=== PATIENT | male | born 2005 | race African-American/Black ===

== ENCOUNTER 2024-06-08 11:52 | Emergency (ER) | payer MEDICAID, SELFPAY ==
--- NOTE | ~2024-06-08 | XR_ITS ---
EXAMINATION: XR ankle RT min 3V (accession [id number]), XR foot RT min 3V (accession [id number]) 06/08/2024 12:26:00 AM CLINICAL HISTORY: pain, injury COMPARISON: None FINDINGS: No evidence of acute fracture or malalignment. Ankle mortise is congruent. Talar dome is intact. No tibiotalar joint effusion. Mild lateral ankle soft tissue swelling. XR/XR ankle RT min 3V IMPRESSION: Mild lateral ankle soft tissue swelling without evidence of acute fracture or malalignment of the right foot or ankle. Electronically signed by: Misael ePguero MD 06/08/2024 02:34 PM EDT
--- NOTE | ~2024-06-08 | XR_ITS ---
EXAMINATION: XR ankle RT min 3V (accession [id number]), XR foot RT min 3V (accession [id number]) 06/08/2024 12:26:00 AM CLINICAL HISTORY: pain, injury COMPARISON: None FINDINGS: No evidence of acute fracture or malalignment. Ankle mortise is congruent. Talar dome is intact. No tibiotalar joint effusion. Mild lateral ankle soft tissue swelling. XR/XR foot RT min 3V IMPRESSION: Mild lateral ankle soft tissue swelling without evidence of acute fracture or malalignment of the right foot or ankle. Electronically signed by: Misael Peguero MD 06/08/2024 02:34 PM EDT
[2024-06-08 11:56] VITALS: BP 132/68; PULSE 93; RESP 17; TEMP 36.6; O2SAT 98; BMI 31.8
--- NOTE | 2024-06-08 11:59 | ED.GENADULT ---
HPI - General Adult General Chief complaint: Extremity Injury, Lower Stated complaint: R ankle inj Time Seen by Provider: 06/08/24 12:45 Source: patient, RN notes reviewed and old records reviewed Mode of arrival: ambulatory History of Present Illness ED Provider: Desi Wood PA-C HPI narrative: 19-year-old male with no significant past medical history presenting to ED complaining of right ankle pain and swelling s/p twisting while doing work out yesterday. Denies head trauma, LOC, injury to the area, numbness/tingling. Has been ambulatory with pain Related Data Allergies Allergy/AdvReac Type Severity Reaction Status Date / Time No Known Allergies Allergy Verified 06/08/24 11:58 Review of Systems Review of Systems: Yes all other systems are reviewed and are negative Constitutional: Constitutional: Reports as per [facility] Past Medical History Attestation statement: The following information was validated with the patient. Source: old records reviewed Social History Social History Advance Directives: No Advance Directives Information Provided: No Do you have a plan to hurt others: No Plan Physical Exam ED Vital Signs: Vital Signs - 24 hr 06/08/24 11:56 Temperature 98 F Pulse Rate 93 Respiratory Rate 17 Blood Pressure 132/68 Pulse Oximetry 98 Oxygen Delivery Method Room Air BMI result Body Mass Index 31.8 Const General: cooperative, healthy appearing and no acute distress Orientation/consciousness: patient oriented x3 Limitations: no limitations HENMT Head: Yes normal to inspection and Yes atraumatic Ears: hearing grossly normal bilaterally General nose exam: Normal external nose present Face and sinus: Yes normal facial exam Eyes General: appearance normal, both eyes and all related structures EOM: EOMs intact bilaterally Neck Neck: Yes normal visual inspection and Yes no meningeal signs Resp Effort & Inspection: normal respiratory effort and no respiratory distress Cardio Rate: regular rate Skin Rashes: no rashes Wounds: no wounds Neuro General: patient oriented x3, tone normal and no meningeal signs Cranial nerves: Yes CN's II-XII intact bilaterally Gait exam (Neuro): Normal gait present Extrem Other: Right ankle with appreciable swelling to lateral malleolus. Diffusely tender. Limited ROM secondary to pain. Neurovascularly intact. No ecchymosis. No pedal edema Course Course Course Narrative: RME performed by Nathalie Young PA-C. Patient is a 19 year old assigned male at presenting to the emergency department with right ankle pain. Patient states he was exercising when he twisted his right ankle. Detailed physical exam and review of systems are deferred to the door and arrival attendant. Imaging ordered. Patient placed back in the waiting room pending room availability and results. 1451--XR ankle RT min 3V/XR foot RT min 3V IMPRESSION: Mild lateral ankle soft tissue swelling without evidence of acute fracture or malalignment of the right foot or ankle. > Air cast applied. Patient already has crutches. Results discussed with patient including worrisome signs and symptoms and strict return precautions, and when to return to the emergency department. They verbalized understanding and feel safe for discharge at this time. Procedures Orthopedic Splinting/Casting Injury #1: Side: right Lower Extremity Injury Location: ankle Lower Extremity Immobilizer: AirCast Other Orthopedic Equipment: crutches Medical Decision Making Medical Decision Making MDM Narrative: 19-year-old male with no significant past medical history presenting to ED complaining of right ankle pain and swelling s/p twisting while doing work out yesterday. On exam vital signs stable, NAD, nontoxic appearing, physical exam as noted above. Concern for fracture vs sprain. Unlikely DVT. No evidence of septic joint/arthritis Plan: X-ray Please refer to course for remaining clinical decision making, interpretation of labs/imaging results, and discussions with consultants and/or family members. Differential Diagnosis Differential Diagnoses: The differential diagnosis associated with the presentation includes As above Independent Interpretation I performed an independent interpretation of an: Plain X-Ray Radiology Impression Discussion of test interpretation with radiology: I have reviewed the radiologist's reading. External Record Review External record reviewed: Inpatient record, Office record, Outpatient record, Prior outpatient labs, Prior outpatient radiology, Primary care record and Outside ED record Tests considered The following testing was considered but not selected: As above Prescription Management I considered prescription management with: Pain Medication Discharge Plan Discharge Clinical Impression: Ankle sprain and strain Patient Disposition: Home, Self-Care Instructions: Ankle Sprain (DC) Additional Instructions: You sprain your ankle. There is no fracture on x-ray Wear Aircast as needed for comfort and stability Use crutches as needed, bear weight as tolerated Ice and elevate Take Tylenol and Motrin Follow-up with her doctor Referrals: Physician,Katlyn J [Primary Care Provider] - 1 week Print Language: Argentine
[2024-06-08 15:00] VITALS: BP 101/56; PULSE 67; RESP 17; O2SAT 100
[2024-06-08 15:08] VITALS: BP 101/56; PULSE 67; RESP 17; TEMP -17.7; TEMP 0; O2SAT 100
== END 2024-06-08 15:09 | disposition home or self-care (01) ==
PROVIDERS: Emergency Provider Emergency Medicine Emergency Medical Services
DX: S93.401A Sprain of unspecified ligament of right ankle, initial encounter (principal); M25.571 Pain in right ankle and joints of right foot; X50.1XXA Overexertion from prolonged static or awkward postures, initial encounter; Y93.89 Activity, other specified; Y92.89 Other specified places as the place of occurrence of the external cause; Y99.8 Other external cause status
CPT/HCPCS: 73610; 73630; 99283